=== PATIENT | female | born 2000 | race Caucasian/White ===

== ENCOUNTER 2019-02-02 19:34 | Emergency (ER) | payer MEDICAID, OTHER ==
[~2019-02-02] VITALS: Ht 157.5 cm; Wt 69.5 kg
[2019-02-02 19:38] VITALS: Ht 157.5 cm; Wt 69.5 kg
[2019-02-02 20:47] LABS: APPEARANCE HAZY (CLEAR); BILIRUBIN NEGATIVE (NEGATIVE); COLOR YELLOW (YELLOW); GLUCOSE NEGATIVE (NEGATIVE); KETONE NEGATIVE (NEGATIVE); NITRITE NEGATIVE (NEGATIVE); PROTEIN NEGATIVE (NEGATIVE); SPECIFIC GRAVITY 1.015 (1.005-1.020); UROBILINOGEN NORMAL (NORMAL)
[2019-02-02 20:48] LABS: EPITHELIAL CELLS 0-5 /hpf (0-5); RED CELLS - URINE 0-5 /hpf (0-5)
[2019-02-02] MEDS ORDERED: SULFAMETHOXAZOL1 TA2 PO (20:51)
[2019-02-02] MEDS ORDERED: NAPROSYN500 MG PO (20:51)
[2019-02-02 21:25] LABS: HCG URINE NEGATIVE (NEGATIVE)
[2019-02-02 21:43] VITALS: BP 129/80
== END 2019-02-02 21:43 | disposition home or self-care (01) ==
LOC: D.ER 19:34
PROVIDERS: Family Medicine
DX: N39.0 Urinary tract infection, site not specified (principal); M54.5 Low back pain